=== PATIENT | female | born 1955 ===

== ENCOUNTER 2022-10-22 07:52 | Outpatient (CLI) | payer SELFPAY ==
--- NOTE | 2022-10-22 07:45 | RT.EKG_ITS ---
APPROVED REPORT Exam: Resting ECG Reason for Exam: SVT,. bradycardia Patient Location: O HR:73 bpm ECG Measurements Heart Rate 73 AXIS MT 163 P 24 QRSd 140 QRS 24 QT 401 T -12 QTc 442 Conclusion Sinus rhythm...normal P axis, V-rate 50- 99 Right bundle branch block...QRSd>120, terminal axis(90,270)
== END 2022-10-22 07:53 | disposition home or self-care (01) ==
LOC: DI.CARD 07:53
PROVIDERS: PCP Physician Assistant Medical; Visit Provider Physician Assistant
DX: I44.2 Atrioventricular block, complete (principal); I47.1 Supraventricular tachycardia; R00.1 Bradycardia, unspecified
CPT/HCPCS: 93010

== ENCOUNTER → 2023-04-22 10:54 | Outpatient (BNVA) | payer MEDICARE, OTHER, SELFPAY | PROVIDERS: PCP Physician Assistant Medical; Referring Provider Physician Assistant Medical; Visit Provider Physician Assistant | DX: I47.10 Supraventricular tachycardia, unspecified (principal); Z95.0 Presence of cardiac pacemaker; R00.1 Bradycardia, unspecified | CPT/HCPCS: 99213 ==

== ENCOUNTER → 2023-10-21 10:51 | Outpatient (BNVA) | payer MEDICARE, OTHER, SELFPAY | PROVIDERS: PCP Physician Assistant Medical; Visit Provider Physician Assistant | DX: Z95.0 Presence of cardiac pacemaker (principal); R00.1 Bradycardia, unspecified | CPT/HCPCS: 93280 ==

== ENCOUNTER 2024-10-19 09:58 | Outpatient (CLI) | payer MEDICARE, OTHER, SELFPAY ==
--- NOTE | 2024-10-19 09:45 | RT.EKG_ITS ---
APPROVED REPORT Exam: Resting ECG Reason for Exam: [facility] Patient Location: O HR:76 bpm ECG Measurements Heart Rate 76 AXIS VT 232 P 31 QRSd 148 QRS 25 QT 411 T -17 QTc 463 Conclusion Sinus rhythm...normal P axis, V-rate 50- 99 Atrial premature complexes...SV complexes w/ short R-R intvls Prolonged VT interval...VT >220, V-rate 50- 90 Right bundle branch block...QRSd>120, terminal axis(90,270)
== END 2024-10-19 09:59 | disposition home or self-care (01) ==
LOC: DI.CARD 09:58
PROVIDERS: PCP Physician Assistant Medical; Visit Provider Registered Nurse
DX: Z95.0 Presence of cardiac pacemaker; I44.2 Atrioventricular block, complete; R00.1 Bradycardia, unspecified
CPT/HCPCS: 93010

== ENCOUNTER → 2024-10-19 10:43 | Outpatient (BNVA) | payer MEDICARE, OTHER, SELFPAY | PROVIDERS: PCP Physician Assistant Medical; Referring Provider Physician Assistant Medical; Visit Provider Registered Nurse | DX: Z95.810 Presence of automatic (implantable) cardiac defibrillator (principal); I49.1 Atrial premature depolarization; I44.2 Atrioventricular block, complete | CPT/HCPCS: 93005; 93280 ==